=== PATIENT | male | born 1995 | race Caucasian/White ===

== ENCOUNTER 2019-03-26 22:53 | Emergency (ER) | payer OTHER ==
[~2019-03-26] VITALS: Ht 182.9 cm; Wt 108.9 kg
--- OUTSIDE RECORDS SUMMARY | 2019-03-26 23:00 | XMS REPORT | Continuity of Care Document ---
Author Organization Unknown Address Unknown Allergies There is no data. Medications There is no data. Problems Date Dx Coded Attending Type Code Diagnosis Diagnosed By 03/26/2014 V70.3 SPORTS PHYSICAL Procedures Code [place] [id number] VISUAL ACUITY SCREEN 03/28/2014 Results There is no data. Encounters ACCT No. Visit Date/Time Discharge Status Pt. Type Provider Facility Loc./Unit Complaint [id number] 03/26/2014 13:10:00 03/26/2014 23:59:59 CLS Outpatient
--- NOTE | 2019-03-27 01:18 | ED Trauma-Multisystem ---
General Chief Complaint: Trauma-Non Activation Stated Complaint: CUTTING TREES;HIT PT ON HEAD Nursing Triage Note: Pt arrived by private vehicle with coworkers for chief complaint of tree falling on pt. Pt was alert, oriented and ambulatory. Pt stated they were clearing the road when tree fell and hit pt in the head. Pt complains of head, neck and back pain. They were wanting DS done and they were notified if they needed that done , that they would need to see occupational health in [place]. Source of Information: Patient History of Present Illness Date Seen by Provider: March 27, 2019 Time Seen by Provider: 01:39 Initial Comments 23-year-old male presenting with complaints of his, neck, lumbar spine pain. He was working cutting a tree that had fallen on the road. He had a tree limb fall and hit him on the head. It caused him to have a popping sensation in his neck and he had pain in his neck Back. He denies any loss of consciousness. He had no numbness or tingling in his arms or legs. He denies prior injury to his head neck or back. He has not taken anything for the pain. He was working when this occurred. He had come to the emergency department for evaluation. Location Injury Occurred: head, neck, back Occurred: Just Prior to Arrival Severity: Mild Pain/Injury Location: Back, Head, Neck Method of Injury: Direct Blow (tree limb fell and hit him) Loss of Consciousness: No Loss of Consciousness Associated Symptoms (Fall): No Abdominal Pain, No Chest Pain, No Confusion, No Dizziness; Headache (mild); No Lightheadedness, No Muscle Spasms, No Nausea/ Vomiting, No Neck Pain, No Ringing in Ears, No Seizures, No Shortness of Air, No Slurred Speech, No Trouble Walking, No Vision Changes Allergies and Home Medications Home Medications Ibuprofen 800 Mg Tablet, 800 MG PO Q8H PRN for PAIN Prescribed by: DASIA PEREZ on 03/27/19 0329 Patient Home Medication List Home Medication List Reviewed: Yes Review of Systems Review of Systems Constitutional: no symptoms reported Eyes: No Symptoms Reported Nose: No Symptoms Reported Mouth: No Symptoms Reported Throat: No Symptoms to Report Respiratory: no symptoms reported Cardiovascular: No Symptoms Reported Gastrointestinal: no symptoms reported Genitourinary: no symptoms reported Musculoskeletal: see HPI Skin: no symptoms reported Psychiatric/Neurological: No Symptoms Reported Past Ubdoggl-Slulbe-Egjbeq Hx Past Med/Social Hx: Reviewed Nursing Past Med/Soc Hx Patient Social History Alcohol Use: Denies Use Recreational Drug Use: No Smoking Status: Never a Smoker 2nd Hand Smoke Exposure: No Recent Foreign Travel: No Contact w/Someone Who Travel: No Recent Infectious Disease Expo: No Recent Hopitalizations: No Physical Abuse: No Sexual Abuse: No Mistreated: No Fear: No Seasonal Allergies Seasonal Allergies: No Past Medical History Surgeries: No Respiratory: No Cardiac: No Neurological: No Genitourinary: No Gastrointestinal: No Musculoskeletal: No Endocrine: No HEENT: No Cancer: No Psychosocial: No Integumentary: No Blood Disorders: No Physical Exam Vital Signs Vital Signs - First Documented Height, Weight, BMI Height: 6'0" Weight: 240lbs. 0oz. 108.816027dn; BMI Method:Stated General Appearance: No Apparent Distress, WD/WN Head: No Sun's Sign, No Lacerations, No Raccoon Eyes, No Swelling, No Tenderness Eyes: Bilateral Eye Normal Inspection Ears, Nose, Throat: Hearing Grossly Normal, No Evidence of ENT Injury, No Dental Injury Neck: Full Range of Motion, Normal Inspection, Supple Cardiovascular: Regular Rate, Rhythm, Normal Peripheral Pulses Respiratory: Chest Non Tender, Lungs Clear, Normal Breath Sounds, No Accessory Muscle Use, No Respiratory Distress Back: No CVA Tenderness, Vertebral Tenderness (mild lumbar spine tenderness to palpation) Extremity: Normal Capillary Refill, Normal Inspection, Normal Range of Motion, Non Tender, No Calf Tenderness Neurologic/Psychiatric: Alert, Oriented x3, No Motor/Sensory Deficits, Normal 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, 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 as Tested Skin: Normal Color, Warm/Dry Progress/Results/Core Measures Results/Orders My Orders Orders - DASIA PEREZ MD Ct Head/Cervical Spine Wo (03/27/19 01:56) Ct Lumbar Spine Wo (03/27/19 01:56) Vital Signs/I&O 03/26/19 03/26/19 03/27/19 23:45 23:45 03:35 Temp 98.3 98.3 98.0 Pulse 94 94 79 Resp 22 22 16 B/P (MAP) 148/70 (96) 148/70 (96) 135/77 (96) Pulse Ox 99 99 99 O2 Delivery Room Air Room Air Blood Pressure Mean: 96 Progress Progress Note #1: Progress Note With force of a tree limb coming down on his head and having a popping sensation in his neck and pain down in the lumbar spine will obtain CT scan of these areas to evaluate for a possible fracture or dislocation. As well as look for possible intracranial hemorrhage or signs of skull fracture or head injury. Patient was offered ibuprofen for inflammation and pain but he refused. He stated he would take some when he got home but felt like he did not need it while he was here in the ED. Progress Note #2: Progress Note CT scan of the head, cervical spine, lumbar spine did not show any acute fracture or dislocation. In his lumbar spine he did have areas of old seen hernia disc at L5-S1 and L4 5. This could've been present prior to the imaging however with him having this show up on CT scan will have him checked with the occupational health and see how they would like to proceed about this prior to him returning to work Diagnostic Imaging Diagonstic Imaging: CT Plain Films/CT/US/NM/MRI: c-spine, head, other (lumbar spine) Comments No acute intracranial process or fracture the cervical or lumbar spine. Bulging disks at L4 5 and L5-S1. Reviewed: Reviewed [place] Hawk Study, Reviewed by Me Departure Impression Primary Impression: Closed head injury without loss of consciousness Qualified Codes: S09.90XA - Unspecified injury of head, initial encounter Additional Impressions: Acute neck sprain Qualified Codes: S13.9XXA - Sprain of joints and ligaments of unspecified parts of neck, initial encounter Bulging of lumbar intervertebral disc without myelopathy Disposition: 01 HOME, SELF-CARE Condition: Stable Departure-Patient Inst. Decision time for Depature: 03:26 Referrals: NO,LOCAL PHYSICIAN (PCP) Primary Care Physician Patient Instructions: Cervical Muscle Strain (DC), Closed Head Injury (DC), Low Back Pain (DC) Add. Discharge Instructions: Use ice and anti-inflammatories to help with pain and inflammation from your injuries tonight. Check with Occupational health/Work Comp about your bulging discs seen on your Lumbar spine L4-5 and L5-S1 area of your spine to see what they want to do about that and when to release you to work. All discharge instructions reviewed with patient and/or family. Voiced understanding. Scripts Ibuprofen (Ibuprofen) 800 Mg Tablet 800 MG PO Q8H PRN for PAIN for 10 Days, #30 TAB 0 Refills Prov: DASIA PEREZ MD 03/27/19 Work/School Note: Work Release Form Date Seen in the Emergency Department: March 27, 2019 Return to Work: March 28, 2019 Restrictions: Follow Up With Occ Health Other Restrictions Listed Below: Must follow up with Occupational Health to see when can be released to work DASIA PEREZ MD March 27, 2019 01:18
--- NOTE | 2019-03-27 01:22 | NUR ---
Report was given to DICK Worthy. Care was transferred at this time.
--- NOTE | 2019-03-27 01:22 | NUR ---
Coworker stated they wanted drug screen and was told by registration that they could get one. They were informed that they would have to go to occupational health in [place] to get that done. He stated after talking to area manager, they will get it done tomorrow.
[2019-03-27] MEDS ORDERED: IBUP-1780 PO (03:29)
[2019-03-27 03:35] VITALS: BP 135/77
--- NOTE | 2019-03-27 07:10 | Diagnostic Imaging Report ---
PROCEDURE: CT head and CT cervical spine without contrast. TECHNIQUE: Multiple contiguous axial images were obtained through the brain and cervical spine without the use of intravenous contrast. Sagittal and coronal reformations through the cervical spine were then performed. Auto Exposure Controls were utilized during the CT exam to meet ALARA standards for radiation dose reduction. INDICATION: Tree fell on patient. FINDINGS: CT head: There is no evidence of intracranial hemorrhage. The ventricles and cortical gyral pattern are normal. No mass effect. No extra-axial fluid collection. No calvarial fractures. Mastoid air cells are clear. IMPRESSION: Negative CT head. CT cervical spine: Sagittal and coronal reformatted images show good alignment. Body heights and disc spaces well maintained. Facets show good alignment. There are no fractures. Surrounding soft tissues are normal. IMPRESSION: Negative CT head without contrast. Dictated by: Dictated on workstation # [id number]
--- NOTE | 2019-03-27 07:12 | Diagnostic Imaging Report ---
PROCEDURE: CT lumbar spine without contrast. TECHNIQUE: Multiple contiguous axial images were obtained through the lumbar spine without the use of intravenous contrast. Sagittal and coronal reformations were then performed. Auto Exposure Controls were utilized during the CT exam to meet ALARA standards for radiation dose reduction. INDICATION: Trauma. Patient reports tree falling on back. FINDINGS: Sagittal and coronal reformatted images show good alignment of the lumbosacral spine. Body heights well-maintained without compression fracture. Facets appear normal. Paraspinal soft tissues are normal. There is mild disc bulge at L4-L5. IMPRESSION: Negative CT lumbosacral spine for acute change. Dictated by: Dictated on workstation # [id number]
== END 2019-03-27 03:43 | disposition home or self-care (01) ==
LOC: ER FS 22:57
DX: S09.90XA Unspecified injury of head, initial encounter (principal); S13.9XXA Sprain of joints and ligaments of unspecified parts of neck, initial encounter; M51.26 Other intervertebral disc displacement, lumbar region; W20.8XXA Other cause of strike by thrown, projected or falling object, initial encounter; Y92.410 Unspecified street and highway as the place of occurrence of the external cause
CPT/HCPCS: 70450; 72125; 72131

== ENCOUNTER 2020-03-07 08:56 | Emergency (ER) | payer SELFPAY ==
[~2020-03-07] VITALS: Ht 185 cm; Wt 113.6 kg
[~2020-03-07 08:56] MED LIST: IBUP-1780 PO
--- OUTSIDE RECORDS SUMMARY | 2020-03-07 09:00 | XMS REPORT | Continuity of Care Document ---
Author Organization Unknown Address Unknown Phone Unavailable Allergies There is no data. Medications There is no data. Problems Date Dx Coded Attending Type Code Diagnosis Diagnosed By 03/26/2014 V70.3 SPOR TS PHYSICAL 03/27/2019 DASIA PEREZ MD, Ot M51.2 6 OTHER INTERVERTEBRAL DISC DISPLACEMENT, 03/27/2019 DASIA PEREZ MD, Ot M54.5 LOW BACK PAIN 03/27/2019 DASIA PEREZ MD, Ot S09.90XA UNSPECIFIED INJURY OF HEAD, INITIAL ENCO 03/27/2019 DASIA PEREZ MD, Ot S13.9XXA SPRAIN OF JOINTS AND LIGAMENTS OF UNSP P 03/27/2019 DASIA PEREZ MD, Ot W20.8XXA OTH CAUSE OF STRIKE BY THROWN, PROJECTED 03/27/2019 DASIA PEREZ MD, Ot Y92.4 [address] [facility] [address] Procedures Code Description [place] [address] VISU AL ACUITY SCREEN 03/28/2014 Results Test Result Range GC/CHLAMYDIA (SWAB OR URINE)-RAPID - 10/08 15:45 CHLAMYDIA TRACHOMATIS RNA, TMA DETECTED NOT DETECTED NEISSERIA GONORRHOEAE RNA, TMA NOT DETECTED NOT DETECTED COMMENT NRG CBC w/MANUAL DIFF - 11/28/19 07:09 WHITE BLOOD CELL COUNT 5.6 Thousand/uL 3 .8-10.8 RED BLOOD CELL COUNT 5.73 Million/uL 4.2 0-5.80 HEMOGLOBIN 15.2 g/dL 13.2-17.1 HEMATOCRIT 47.1 % 38.5-50.0 MCV 82.2 fL 80.0-100.0 MCH 26.5 pg 27.0-33.0 MCHC 32.3 g/dL 32.0-36.0 RDW 14.7 % 11.0-15.0 PLATELET COUNT 229 Thousand/uL 140-400 MPV 10.9 fL 7.5-12.5 ABSOLUTE NEUTROPHILS 2570 cells/uL 1500- 7800 ABSOLUTE MONOCYTES 515 cells/uL 200-950 ABSOLUTE EOSINOPHILS 151 cells/uL 15-500 ABSOLUTE BASOPHILS 0 cells/uL 0-200 NEUTROPHILS 45.9 % NRG LYMPHOCYTES 42.2 % NRG MONOCYTES 9.2 % NRG EOSINOPHILS 2.7 % NRG BASOPHILS 0 % NRG ABSOLUTE LYMPHOCYTES 2363 cells/uL 850-3 900 PLATELET ESTIMATION ADEQUATE ADEQUATE Encounters ACCT No. Visit Date/Time Discharge Status Pt. Type Provider Facility Loc./Unit Complaint [id number] 11/28/2019 07:15:00 11/28/2019 23:59: 59 CLS Outpatient ANTW[facility] R[facility] [id number] 11/28/2019 07:15:00 Document Registration [id number] 05/30/2019 15:40:00 Document Registration [id number] 03/26/2019 22:57:00 019 03:43:00 DIS Emergency ANA KRISHNA, DASIA [facility] ER FS CUTTING TREES;HIT PT ON HEAD [id number] 03/26/2014 13:10:00 03/26/2014 23:59: 59 CLS Outpatient
--- OUTSIDE RECORDS SUMMARY | 2020-03-07 09:00 | XMS REPORT ---
Author Author Abad Krishna Doctor Organization [facility] Address Unknown Phone Unavailable Care Team Providers Care Melangeur Operator Name Role Phone Migration, Doctor Unavailable Unavailable PROBLEMS Type Condition ICD9-CM Code [id number] Code Onset Dates Condition S tatus SNOMED Code Problem Other general medical examination for administrative purpo ses V70.3 Active [id number] Problem Migraine with aura and without status migrainosu s, not intractable G43.109 Active [id number] ALLERGIES No Information ENCOUNTERS Encounter Location Date Diagnosis [place] [address] [place] [address] 9 Nov, Elevated alkaline phosphatase level R74.8 [place] [address] [place] [address] 9 Nov, [place] [address] [address] [place] [address] Nov, Migraine with aura and witho ut status migrainosus, not intractable G43.109 [place] [address] [place] [address] 9 Nov, Migraine with aura and without status migrainosus, not intractable G43.109 [place] [address] [place] [address] Oct, Migraine with aura and without status migrainosus, not intractable G43.109 [place] [address] [place] [address] May, Exposure to STD Z20.2 and Exposure to potentially hazardous body fluids Z77.21 [address] [place] [address] March, Neck pain M54.2 [facility] [address] [place] [address] March, Accident at workplace Y99.0 [facility] [address] [id number] [place] [address] March, [facility] [address] [id number] [place] [address] March, IMMUNIZATIONS No Known Immunizations SOCIAL HISTORY Never Assessed REASON FOR VISIT PLAN OF CARE VITAL SIGNS Height 71 in 2014-03-26 Weight 196 lbs 2014-03-26 Temperature 98 degrees Fahrenheit 2014-03-26 Heart Rate 90 bpm 2014-03-26 Blood pressure systolic 124 mmHg 2014-03-26 Blood pressure diastolic 80 mmHg 2014-03-26 MEDICATIONS Unknown Medications RESULTS No Results PROCEDURES Procedure Date Ordered Result Body Site VISUAL ACUITY SCREEN March 26, 2014 INSTRUCTIONS MEDICATIONS ADMINISTERED No Known Medications MEDICAL (GENERAL) HISTORY Type Description Date Medical History headache
--- NOTE | 2020-03-07 09:18 | ED General ---
General Chief Complaint: Chest Wall Stated Complaint: CHEST PAIN Nursing Triage Note: Patient reports chest wall pain x 24 hours. worse with movement and deep breathing. denies taking medication for pain Nursing Sepsis Screen: No Definite Risk Source of Information: Patient Exam Limitations: No Limitations History of Present Illness Date Seen by Provider: Mar 07, 2020 Time Seen by Provider: 09:18 Initial Comments Patient presents with right lower chest pain, intermittent since yesterday. Patient states it initially started when he pushed again open while at work yesterday and felt a sharp pain in his right lower chest that later went away. Hours later he sneezed and felt a sharp pain get worse in the same area., Since then he has had intermittent sharp pains the right lower anterior chest worse with deep breath, certain movements. Denies any recent illness: Fever, chills, cough, shortness of air. Negative COVID-19 risk factors. No significant past medical history. Nonsmoker. Allergies and Home Medications Home Medications Ibuprofen 800 Mg Tablet, 800 MG PO Q8H PRN for PAIN Prescribed by: DASIA PEREZ on 03/27/19 0329 Patient Home Medication List Home Medication List Reviewed: Yes Review of Systems Review of Systems Constitutional: see HPI; No chills, No diaphoresis, No dizziness, No fever, No malaise, No weakness, No weight gain, No weight loss, No other Respiratory: No cough, No hemoptysis, No orthopnea, No phlegm, No short of breath, No stridor, No wheezing Cardiovascular: see HPI, chest pain; No edema, No Hx of Intervention, No palpitations, No syncope, No vascular heart diseas Gastrointestinal: No abdominal pain, No diarrhea, No loss of appetite, No melena, No nausea, No vomiting Musculoskeletal: see HPI; No back pain, No joint pain; muscle pain (right lower chest wall); No neck pain Skin: No change in color, No lesions, No pruritus, No rash Past Vyyeuaj-Hnpbka-Qhvhax Hx Past Med/Social Hx: Reviewed Nursing Past Med/Soc Hx Patient Social History Alcohol Use: Denies Use Recreational Drug Use: No Smoking Status: Never a Smoker 2nd Hand Smoke Exposure: No Recent Foreign Travel: No Contact w/Someone Who Travel: No Recent Infectious Disease Expo: No Recent Hopitalizations: No Seasonal Allergies Seasonal Allergies: No Past Medical History Surgeries: Yes (ORTHO) Respiratory: No Cardiac: No Neurological: No Genitourinary: No Gastrointestinal: No Musculoskeletal: No Endocrine: No HEENT: No Cancer: No Psychosocial: No Integumentary: No Blood Disorders: No Physical Exam Vital Signs Vital Signs - First Documented 03/07/20 09:02 Temp 36.2 Pulse 85 Resp 16 B/P (MAP) 151/78 (102) Pulse Ox 98 O2 Delivery Room Air Capillary Refill : Less Than 3 Seconds Height, Weight, BMI Height: 6'0" Weight: 240lbs. 0oz. 108.464082ns; 33.00 BMI Method:Stated General Appearance: No Apparent Distress, WD/WN HEENT: PERRL/EOMI, Normal ENT Inspection Neck: Full Range of Motion, Normal Inspection, Non Tender, Supple Respiratory: Lungs Clear, Normal Breath Sounds, No Accessory Muscle Use, No Respiratory Distress, Other (tenderness soft tissue, muscles - right anterior lower chest wall/ costal margin and upper abdominal ms (rectus ms attach.). Acute point tenderness to palpation. REproducible/ exacerbated w movement, performing sit up or leg raise.) Gastrointestinal: Non Tender, Soft, Other (see above (TTP R upper rectus ms insertion)) Back: Normal Inspection, No CVA Tenderness, No Vertebral Tenderness; No Decreased Range of Motion, No Muscle Spasm, No Vertebral Tenderness Extremity: Normal Capillary Refill, Normal Inspection, Normal Range of Motion, Non Tender Neurologic/Psychiatric: Alert, Oriented x3, No Motor/Sensory Deficits, Normal Mood/Affect Progress/Results/Core Measures Suspected Sepsis Recent Fever Within 48 Hours: No Infection Criteria Present: None New/Unexplained Altered Menta: No Sepsis Screen: No Definite Risk SIRS Temperature: Pulse: 85 Respiratory Rate: 16 Blood Pressure 151 /78 Mean: 102 Results/Orders Vital Signs/I&O 03/07/20 09:02 Temp 36.2 Pulse 85 Resp 16 B/P (MAP) 151/78 (102) Pulse Ox 98 O2 Delivery Room Air Capillary Refill : Less Than 3 Seconds Blood Pressure Mean: 102 Departure Impression Primary Impression: Chest wall pain Disposition: 01 HOME, SELF-CARE Condition: Stable Departure-Patient Inst. Decision time for Depature: 09:18 Referrals: DARLENE TURNER MD (PCP/Family) Primary Care Physician Patient Instructions: Chest Pain That Is Not Caused by the Heart (DC) ANKIT SPIVEY DO Mar 07, 2020 09:18
[2020-03-07 09:20] VITALS: BP 151/78
== END 2020-03-07 09:20 | disposition home or self-care (01) ==
LOC: EDUNIT# 08:56 → ER FS 08:57
DX: R07.89 Other chest pain (principal)
CPT/HCPCS: 99283

== ENCOUNTER 2023-08-10 10:17 | Emergency (ER) | payer BC ==
[~2023-08-10] VITALS: Ht 182.8 cm; Wt 115.6 kg
[2023-08-10] MEDS ORDERED: KETOROLAC INJ 15 MG/ML VIAL IVP ONE (11:45)
[2023-08-10] MEDS ORDERED: NS IV 1000 ML 1,000 ML IV SCH (11:45)
[2023-08-10] MEDS ORDERED: METOCLOPRAMIDE INJ 10 MG/2 ML IVP ONE (11:45)
[2023-08-10] MEDS ORDERED: diphenhydrAMINE INJ 50 MG/ML VIAL IVP ONE (11:45)
--- NOTE | 2023-08-10 11:55 | ED Headache ---
General Chief Complaint: Head/Cervical Problems Stated Complaint: MIGRAINES Nursing Triage Note: PT AMB TO TRIAGE WITH COMPLAINT OF MIGRAINE. STATES STARTED LAST MONDAY. SAW PCP YESTERDAY, AND STARTED ON NEW MEDICATION. STATES TOOK ZOFRAN THIS MORNING FOR VOMITING. STATES MIGRAINE HAS BEEN INTERMITTENT. Source: patient Exam Limitations: no limitations History of Present Illness Date Seen by Provider: Aug 10, 2023 Time Seen by Provider: 11:36 Initial Comments 27-year-old male presents to the ER with complaints of migraines which have been intermittent since 07/31. He states that today the pain has been the worst, he reports vomiting 6 times. He reports a history of migraines, states that they normally only last a day, they do not normally last this long. He saw his primary care doctor yesterday, who prescribed him rizatriptan and metoprolol. The pharmacy did not have the rizatriptan, but he did start the metoprolol. He states that currently his headache is only mild. Denies fevers, cough, sore throat. Allergies and Home Medications Allergies Coded Allergies: No Known Drug Allergies (Unverified , 08/10/23) Patient Home Medication List Home Medication List Reviewed: Yes Ibuprofen (Ibuprofen) 800 Mg Tablet, 800 MG PO Q8H PRN for PAIN Prescribed by: DASIA PEREZ on 03/27/19 0329 Review of Systems Review of Systems Constitutional: see HPI Past [id number] Hx Patient Social History Tobacco Use?: No Use of E-Cig and/or Vaping dev: No Substance use?: No Alcohol Use?: Yes Alcohol Frequency: Once in a while Pt feels they are or have been: No Seasonal Allergies Seasonal Allergies: No Past Medical History Surgeries: Yes (ORTHO) Respiratory: No Cardiac: No Neurological: No Genitourinary: No Gastrointestinal: No Musculoskeletal: No Endocrine: No HEENT: No Cancer: No Psychosocial: No Integumentary: No Blood Disorders: No Physical Exam Vital Signs Vital Signs - First Documented 08/10/23 10:59 Temp 36.5 Pulse 105 Resp 20 B/P (MAP) 129/86 (100) Pulse Ox 99 O2 Delivery Room Air Capillary Refill : Height, Weight, BMI Height: 6'0" Weight: 240lbs. 0oz. [phone]; 34.00 BMI Method:Stated General Appearance: WD/WN, no apparent distress HEENT: PERRL/EOMI, TMs normal Neck: full range of motion, supple, normal inspection Cardiovascular: regular rate, rhythm Respiratory: lungs clear, normal breath sounds, no respiratory distress Extremities: normal range of motion, normal inspection Psychiatric: alert, oriented x 3 Crainal Nerves: normal hearing, normal speech, PERRL Motor/Sensory: no motor deficit, no sensory deficit Skin: normal color, warm/dry Progress/Results/Core Measures Results/Orders My Orders Orders - JOSE ARMANDO MIGUEL APRN Metoclopramide Injection (Metoclopramide (08/10/23 11:45) Diphenhydramine Injection (Diphenhydram (08/10/23 11:45) Ketorolac Injection (Ketorolac Injection (08/10/23 11:45) Ed Iv/Invasive Line Start (08/10/23 11:45) Ns Iv 1000 Ml (Ns Iv 1000 Ml) (08/10/23 11:45) Medications Given in ED Current Medications Medications Dose Ordered Sig/Ankit Route Start Time Stop Time Status Last Admin Dose Admin Diphenhydramine HCl 25 mg ONCE ONCE IVP 08/10/23 11:45 08/10/23 11:49 DC 08/10/23 12:02 25 MG Ketorolac Tromethamine 15 mg ONCE ONCE IVP 08/10/23 11:45 08/10/23 11:49 DC 08/10/23 12:02 15 MG Metoclopramide HCl 10 mg ONCE ONCE IVP 08/10/23 11:45 08/10/23 11:49 DC 08/10/23 12:02 10 MG Vital Signs/I&O 08/10/23 08/10/23 10:59 13:04 Temp 36.5 36.5 Pulse 105 105 Resp 20 20 B/P (MAP) 129/86 (100) 129/86 Pulse Ox 99 99 O2 Delivery Room Air Room Air Blood Pressure Mean: 100 Progress Progress Note : Progress Note Patient seen and evaluated, resting comfortably in recliner, no acute distress. Treatment initiated including Benadryl, Reglan, Toradol, IV fluids. Considered CT head, but deferred due to long history of migraines, headache is intermittent, and patient only has a mild headache at this time. 1257 patient reports that his headache is gone. Will proceed with discharge at this time. Discharge instructions and return precautions provided. Departure Impression Primary Impression: Migraine Disposition: 01 HOME, SELF-CARE Condition: Stable Departure-Patient Inst. Decision time for Depature: 12:59 Referrals: RAQUEL CORDERO (PCP/Family) Primary Care Physician Patient Instructions: Migraines (DC) Add. Discharge Instructions: Take your home medications as prescribed. When you get a migraine, you can take 800 mg ibuprofen, 25 to 50 mg of Benadryl, and your Zofran. Follow-up with your primary care provider regarding your migraines. Return for severe headache, difficulty with normal activities, weakness on one side of your body, or any other new, concerning, or worsening symptoms. All discharge instructions reviewed with patient and/or family. Voiced understanding. JOSE ARMANDO MIGUEL APRN Aug 10, 2023 11:55
[2023-08-10 13:04] VITALS: BP 129/86
== END 2023-08-10 13:04 | disposition home or self-care (01) ==
LOC: EDUNIT# 10:17 → ER 10:19
DX: G43.909 Migraine, unspecified, not intractable, without status migrainosus (principal)